=== PATIENT | female | born 1990 | race African-American/Black ===

== ENCOUNTER 2017-02-14 01:47 | Emergency (ER) | payer OTHER ==
[~2017-02-14] VITALS: Ht 165.1 cm; Wt 80.0 kg
[~2017-02-14 01:47] MED LIST: IBUP800T23 PO; LEVO137T2 PO; ROBA500T PO
[2017-02-14 01:49] VITALS: BP 115/63; PULSE 89; RESP 16; TEMP 98.1; O2SAT 98
[2017-02-14] MEDS ORDERED: DIPH25CA PO (02:29)
[2017-02-14] MEDS ORDERED: PRED-503 PO (02:29)
[2017-02-14] MEDS ORDERED: FAMO1TAB73 PO (02:29)
[2017-02-14] MEDS ORDERED: diphenhydrAMINE HCL 50 MG/ML VIAL IM ONE (02:30)
[2017-02-14] MEDS ORDERED: FAMOTIDINE 20 MG TAB PO ONE (02:30)
[2017-02-14] MEDS ORDERED: predniSONE 20 MG TAB PO ONE (02:30)
--- NOTE | 2017-02-14 02:34 | PD ---
HPI Chief Complaint: Skin Problem Time Seen by Provider: 02:30 Travel History International Travel<30 days: No Contact w/Intl Traveler<30days: No Traveled to known affect area: No History of Present Illness HPI 26-year-old black female presents to emergency Department with complaints of allergic reaction. She states that she woke this evening with hives all over body. She did not take any medications. She came directed to the ER. She states that she's been having hives on and off now for over a month. She is unsure the etiology. She denies any changes in her apartment. No new soaps or detergents. No new foods or enlargement mental changes. She denies any recent illness. She denies any shortness of breath or wheezing. No glossal edema. No difficulty swallowing. She states that she has hives all over and has significant pruritus. PFSH Past Medical History Diminished Hearing: No Psychiatric: Yes (BIPOLAR) Integumentary: Yes (ECZEMA) Thyroid Disease: Yes (HYPERTHYROIDISM) Tetanus Vaccination: < 5 Years ?: Not LMP: END OF JANUARY Past Surgical History Surgical History: No Previous Surgery Social History Alcohol Use: No Tobacco Use: No Substance Use: Yes (" I SMOKE WEED" PER PT) Allergies-Medications (Allergen,Severity, Reaction): Coded Allergies: Amoxicillin (Verified Allergy, Intermediate, swelling, 02/14/17) Reported Meds & Prescriptions Reported Meds & Active Scripts Active Diphenhydramine (Diphenhydramine HCl) 25 Mg Cap 50 Mg PO Q6H PRN 7 Days Deltasone (Prednisone) 20 Mg Tab 20 Mg PO BID Pepcid (Famotidine) 40 Mg Tab 40 Mg PO BID Reported Levothyroxine (Levothyroxine Sodium) 137 Mcg Tab 137 Mcg PO DAILY Review of Systems Except as stated in HPI: all other systems reviewed are Neg Skin: Positive Rash, Positive Itching, Positive Hives, No Dryness, No Lumps, No Change in nails, No Alopecia, No Lesions Physical Exam Narrative GENERAL: Well-developed, well-nourished in no apparent distress. Nontoxic appearing. HEAD: Normocephalic, atraumatic. EYES: Pupils equal round and reactive. Extraocular motions intact. No scleral icterus. No injection or drainage. ENT: Nose clear. Throat without erythema, tonsillar hypertrophy or exudate. Uvula midline. Airway patent. NECK: Trachea midline. Supple, nontender, moves head freely. No central bony tenderness or spasm. CARDIOVASCULAR: Regular rate and rhythm without murmurs, gallops, or rubs. RESPIRATORY: Clear to auscultation. Breath sounds equal bilaterally. No wheezes , rales, or rhonchi. GASTROINTESTINAL: Abdomen soft, non-tender, nondistended. No hepato-splenomegaly , or palpable masses. No guarding. EXTREMITIES: No clubbing, cyanosis, or edema. No joint tenderness. BACK: Nontender without deformity. No flank tenderness. NEUROLOGICAL: Awake, alert and oriented x 3 .Cranial nerves grossly intact. Motor and sensory grossly within normal limits. Normal speech. Skin: Patient has diffuse hives into plaques on her body. There are no vesicles or pustules. Data Data Last Documented VS Vital Signs Date Time Temp Pulse Resp B/P Pulse Ox O2 Delivery O2 Flow Rate FiO2 02/14/17 01:49 98.1 89 16 115/63 98 Orders Diphenhydramine Inj (Benadryl Inj) (02/14/17 02:30) Prednisone (Deltasone) (02/14/17 02:30) Famotidine (Pepcid) (02/14/17 02:30) MDM Medical Decision Making Medical Screen Exam Complete: Yes Emergency Medical Condition: Yes Medical Record Reviewed: Yes Differential Diagnosis MDM: High Differential diagnoses: Abscess, folliculitis, cellulitis, lymphangitis, abrasion, contact dermatitis, allergic reaction Narrative Course Patient's given Benadryl 50 mg IM, prednisone 60 mg by mouth, and Pepcid 20 mg by mouth. This is allergic reaction etiology unclear Diagnosis Primary Impression: allergic reaction etiology unclear Patient Instructions: General Instructions Additional Instructions: Rest. Perform a diary of all foods, exposures, chemicals in your surrounding environment. Prednisone, Pepcid, and Benadryl. Follow-up with your doctor this week for recheck. Referral to dry folder cloth for allergy testing. Med/Other Pt SpecificInfo: Prescription(s) given Scripts Diphenhydramine 25 Mg Cap50 Mg PO Q6H PRN (ALLERGIES) 7 Days Ref 0 Prov:Alisha Garcia DO 02/14/17 Prednisone (Deltasone)20 Mg Tab20 Mg PO BID #14 TAB Prov:Alisha Garcia DO 02/14/17 Famotidine (Pepcid)40 Mg Tab40 Mg PO BID #10 TAB Ref 0 Prov:Alisah Garcia 02/14/17 Disposition: 01 DISCHARGE HOME Condition: Stable Aba Villatoro Feb 14, 2017 02:34
== END 2017-02-14 03:19 | disposition home or self-care (01) ==
LOC: NEPD 01:47
DX: T78.40XA Allergy, unspecified, initial encounter (principal)
CPT/HCPCS: 96372; 99284; J1200; J7512

== ENCOUNTER 2017-12-12 13:58 | Emergency (ER) | payer OTHER ==
[~2017-12-12] VITALS: Ht 162.6 cm; Wt 90.0 kg
[~2017-12-12 13:58] MED LIST changes: +DIPH25CA PO; +FAMO1TAB73 PO; -IBUP800T23 PO; +PRED-503 PO; -ROBA500T PO
[2017-12-12 14:05] VITALS: BP 116/71; PULSE 71; RESP 16; TEMP 97.6; O2SAT 100
[2017-12-12] MEDS ORDERED: METHOCARBAMOL 500 MG TAB PO ONE (15:45)
[2017-12-12] MEDS ORDERED: IBUPROFEN 800 MG TAB PO ONE (15:45)
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
[2017-12-12] MEDS ORDERED: ROBA500T PO (15:49)
[2017-12-12] MEDS ORDERED: IBUP1TAB7 PO (15:49)
== END 2017-12-12 16:00 | disposition home or self-care (01) ==
LOC: NEPK 13:58
DX: S29.012A Strain of muscle and tendon of back wall of thorax, initial encounter (principal); R51 Headache; E11.9 Type 2 diabetes mellitus without complications; I10 Essential (primary) hypertension; V49.40XA Driver injured in collision with unspecified motor vehicles in traffic accident, initial encounter
CPT/HCPCS: 99283